=== PATIENT | male | born 1970 | race African-American/Black ===

== ENCOUNTER 2021-06-26 20:56 | Emergency (ER) | payer OTHER ==
[~2021-06-26] VITALS: Ht 177.8 cm; Wt 99.8 kg
[~2021-06-26 20:56] MED LIST: ONDA-133 PO; PRED-188 PO; PROAIR; RANI-185 PO; TRAM50TA2 PO
[2021-06-26] MEDS ORDERED: EPINEPHrine HCL 1 MG/1 ML AMP IM ONE (21:30)
[2021-06-26] MEDS ORDERED: EPIN0.3I24 IJ (22:30)
[2021-06-26] MEDS ORDERED: ALBU108A5 IN (22:34)
[2021-06-26 23:36] VITALS: BP 134/85
== END 2021-06-26 23:39 | disposition home or self-care (01) ==
LOC: EDBD 20:56 → ER 21:04
DX: T78.2XXA Anaphylactic shock, unspecified, initial encounter (principal); F12.10 Cannabis abuse, uncomplicated; J45.909 Unspecified asthma, uncomplicated; K21.9 Gastro-esophageal reflux disease without esophagitis